=== PATIENT | female | born 1995 | race Caucasian/White ===

== ENCOUNTER 2022-10-31 08:05 | Day surgery (SDC) | payer OTHER ==
--- NOTE | 2022-10-31 07:46 | HP ---
DATE OF SURGERY: 10/31/2022 HISTORY OF PRESENT ILLNESS: The patient is a 27-year-old with history of some nausea, vomiting, diarrhea and abdominal aches a little bit lower as well as six to seven loose stools a day. CT negative for appendicitis and HIDA could not do ejection fraction according to the patient. She is in need of endoscopy for further evaluation. PAST MEDICAL HISTORY: Anxiety, depression, dyslexia. PAST SURGICAL HISTORY: section, tonsillectomy and adenoidectomy. MEDICATIONS: Nexplanon. Toradol. ALLERGIES: KETOROLAC. FAMILY HISTORY: Thyroid disease, depression, diabetes. SOCIAL HISTORY: Smoker, occasional alcohol use. REVIEW OF SYSTEMS: Fourteen systems reviewed. No chest pain or palpitations. Other systems negative or noncontributory as above and per preadmission questionnaire. PHYSICAL EXAMINATION: BMI 30. GENERAL: No acute distress. HEENT: Sclerae nonicteric. NECK: No JVD. CHEST: Equal excursion, nonlabored breathing. CVS: Regular rate and rhythm. ABDOMEN: Soft. No peritoneal signs. EXTREMITIES: No significant edema. NEURO: Alert, oriented, moving extremities symmetrically. RECTAL: Deferred timed to endoscopy exam. PSYCH: Appropriate mood and affect. IMPRESSION: Abdominal pain, nausea, vomiting, diarrhea of unclear etiology. Upper endoscopy to rule out celiac disease, peptic ulcer disease, gastritis or other etiology. She is also in need of colonoscopy to evaluate for colitis or irritable bowel disease, celiac disease or other etiology. She was shown the risk sheet and explained the procedure in detail including but not limited to bleeding or infection, risk of bowel injury or perforation, risk of missed or nondiagnosis or incomplete exam possibly requiring barium enema, other studies or procedures. General risk of anesthesia or sedation, risk of bowel prep but not limited to, consent obtained. Risk of missed or nondiagnosis or inability to diagnose the etiology of her symptoms, possibly requiring referral to medical doctor of the GI tract or other testing, procedure or studies. She understands and agrees to the planned procedure, will proceed with outpatient EGD and colonoscopy.
[2022-10-31] MEDS ORDERED: Lactated Ringers 1,000 ML IV ONE (08:18)
[2022-10-31] MEDS ORDERED: Lactated Ringers 1,000 ML IV SCH (08:30)
[2022-10-31 08:35] VITALS: O2SAT 98
[2022-10-31] MEDS ORDERED: Versed 2 MG/2 ML Injection ONE (11:33)
[2022-10-31] MEDS ORDERED: DIPRIVAN 200 MG/20 ML IV ONE ×2 (11:34→11:44)
[2022-10-31] MEDS ORDERED: Xylocaine-Mpf 2% 5 Ml Vial ONE (11:34)
[2022-10-31 12:23] VITALS: BP 100/62; PULSE 93
--- NOTE | 2022-11-01 10:32 | OP ---
SURGERY DATE/TIME: 10/31/2022 1145 PREOPERATIVE DIAGNOSES: Abdominal pain, nausea, vomiting of unclear etiology, need for upper and lower endoscopy to evaluate for gastritis, peptic ulcer disease, colitis, inflammatory bowel disease or other etiology. POSTOPERATIVE DIAGNOSES: 1) ASA Class II. 2) Mild gastritis. 3) Short segment of distal gastroesophagitis. 4) Fair bowel prep. 5) Fairly normal mucosa ileum and colon. PROCEDURES: 1) EGD with cold biopsy of small bowel to evaluate for celiac sprue. 2) Cold biopsy of antrum. 3) Cold biopsy distal esophagus to evaluate for short segment of distal esophagitis, very short segment a couple of millimeters. 4) Colonoscopy to terminal ileum. 5) Retrograde ileoscopy. 6) Random cold biopsy of ileum to evaluate for microscopic ileitis. 7) Random cold biopsy of colon to evaluate for microscopic colitis. SURGEON: Dr. Ronen Summers. ANESTHESIA: MAC. ESTIMATED BLOOD LOSS: Minimal. INDICATIONS: As noted above. Risks and benefits explained in detail and not limited to and consent obtained. DESCRIPTION OF PROCEDURE AND FINDINGS: The patient is taken to the operating room. MAC anesthesia introduced. After official time out and no disagreement with planned procedure, bite block positioned. Video gastroscope easily passed down the esophagus to the patent pylorus to the third portion of the duodenum. Third, second and first portions of duodenum grossly unremarkable. Cold biopsy taken to evaluate for celiac. The scope is pulled back in the stomach. She had some mild gastric erythema. Cold biopsy taken to evaluate for Helicobacter pylori. Otherwise there was a very short segment 1.5 mm to 2 mm of a little bit of inflammation distal esophagus. Cold biopsy taken for path. Good hemostasis noted. Remainder of the esophagus grossly unremarkable. Attention is then turned to colonoscopy. Digital rectal exam did not reveal any rectal masses. Video colonoscope inserted and passed up the tortuous sigmoid, descending, transverse, ascending colon around to the ileum. Up in the ileum retrograde ileoscopy was performed which was grossly unremarkable. No signs of any obvious inflammatory bowel disease. Random cold biopsy taken of the ileum. Random cold biopsies taken in the colon. She had a little bit of liquidy stool limiting the exam just slightly, overall fair prep. The scope was carefully withdrawn over the next 9 minutes. No signs of any large polyps, masses or obstructing lesions. Random cold biopsies taken to evaluate for microscopic colitis. Good hemostasis noted. Findings discussed with the family out in the waiting area. Will check gallbladder ultrasound as an outpatient to rule out other causes.
== END 2022-10-31 12:35 | disposition home or self-care (01) ==
LOC: SDC 08:05
PROVIDERS: ATTEND Surgery
DX: K29.70 Gastritis, unspecified, without bleeding (principal); R10.84 Generalized abdominal pain; R11.2 Nausea with vomiting, unspecified; K21.00 Gastro-esophageal reflux disease with esophagitis, without bleeding
CPT/HCPCS: 81025; J2250; J2704

== ENCOUNTER 2024-10-22 21:16 | Emergency (ER) | payer OTHER ==
[2024-10-22 21:49] VITALS: TEMP 97.8; O2SAT 100
[2024-10-22 22:03] LABS: Absolute Neutrophil Ct (ANC) 6.78 x10^3/uL (1.56-6.13); BASOPHIL % 0.3 % (0.1-1.2); Basophil (Absolute #) 0.03 x10^3/uL (0.01-0.08); Eosinophil % 1.4 % (0.7-5.8); Eosinophil (Absolute #) 0.14 x10^3/uL (0.04-0.36); Hemoglobin 13.6 g/dL (11.2-15.7); IMMATURE GRAN # 0.05 x10^3u/L (0.001-0.031); IMMATURE GRAN % 0.5 % (0.001-0.429); Lymphocyte (Absolute #) 2.39 x10^3/uL (1.18-3.74); Lymphocytes % 23.6 % (19.3-51.7); Mean Cell Volume 93.5 fL (79.4-94.8); Mean Corpuscular Hemoglobin 31.8 pg (25.6-32.2); Mean Platelet Volume 10.1 fL (9.4-12.3); Monocyte (Absolute #) 0.73 x10^3/uL (0.24-0.86); Monocytes % 7.2 % (4.7-12.5); Platelet Count 238 x10^3/uL (182-369); Red Blood Count 4.28 x10^6/uL (3.93-5.22); White Blood Count 10.1 x10^3/uL (3.98-10.04)
--- NOTE | 2024-10-22 22:15 | ERPHSYRPT ---
- History of Present Illness Time Seen by Provider: 10/22/24 22:11 Source: patient Exam Limitations: no limitations Patient Subjective Stated Complaint: pt states that she is 12 weeks 6 days . pt states that today she began to bleed. pt states that she had intercoarse last night Triage Nursing Assessment: pt ambulated into the er; pt is axo x4; c/o vaginal bleeding during ; pt states 9/10 pain to lower back; abd is soft, round, tender; active bowel sounds in all quads; pt denies N/V/D; skin PDW; no respiratory distress present; vitals wnl Physician History: Patient is a 29-year-old female G4, P3 currently 12 weeks 6 days presents to our ED for evaluation of painless vaginal bleeding. Patient states symptoms started after intercourse last night. Patient confirmed via ultrasound in September. However she has not followed up with an [employer] physician. Patient symptoms are mild in intensity. No specific worsening or improving factors. No active bleeding at this time. Patient reports that she is otherwise healthy. Patient's only associated symptomology is mild low back pain. No chest pain or shortness of breath. No nausea vomiting or diaphoresis no diarrhea no rash no urinary symptomology. Patient is otherwise healthy. She voices no other complaints or concerns at this time. Patient declined pain medication. Portions of this note were created with voice recognition technology. There may be grammatical, spelling, punctuation or sound alike errors Timing/Duration: yesterday Severity: moderate Modifying Factors: Improves With: nothing Associated Symptoms: denies symptoms Allergies/Adverse Reactions: ketorolac [From Toradol] Allergy (Unknown, Verified 10/22/24 21:28) Swelling of Face Home Medications: No Reportable Medications [No Reported Medications] 10/04/22 [History] Hx Tetanus, Diphtheria Vaccination/Date Given: Yes Hx Influenza Vaccination/Date Given: No Hx Pneumococcal Vaccination/Date Given: No Travel Risk - International Travel Have you traveled outside of the country in past 3 weeks: No - Emerging Infectious Disease Are you exhibiting symptoms associated with any current EIDs: No - Review of Systems Constitutional: No Symptoms, No Fever, No Chills Eyes: No Symptoms Ears, Nose, & Throat: No Symptoms Respiratory: No Symptoms, No Cough, No Dyspnea Cardiac: No Symptoms, No Chest Pain, No Edema, No Syncope Abdominal/Gastrointestinal: No Symptoms, No Abdominal Pain, No Nausea, No Vomiting, No Diarrhea Genitourinary Symptoms: No Symptoms, No Dysuria Musculoskeletal: No Symptoms, No Back Pain, No Neck Pain Skin: No Symptoms, No Rash Neurological: No Symptoms, No Dizziness, No Focal Weakness, No Sensory Changes Psychological: No Symptoms Endocrine: No Symptoms Hematologic/Lymphatic: No Symptoms Immunological/Allergic: No Symptoms All Other Systems: Reviewed and Negative - Past Medical History Pertinent Past Medical History: Yes Neurological History: No Pertinent History ENT History: No Pertinent History Cardiac History: No Pertinent History Respiratory History: No Pertinent History Endocrine Medical History: No Pertinent History Musculoskeletal History: No Pertinent History GI Medical History: No Pertinent History History: No Pertinent History Psycho-Social History: Anxiety, Depression Female Reproductive Disorders: No Pertinent History - Past Surgical History Past Surgical History: Yes Neuro Surgical History: No Pertinent History Cardiac: No Pertinent History Respiratory: No Pertinent History Gastrointestinal: No Pertinent History Genitourinary: No Pertinent History Musculoskeletal: No Pertinent History Female Surgical History: Section Other Surgical History: x3 - Female History Hx Now: Yes Gestational Age: 12 wk 6d - Social History Smoking Status: Current every day smoker How long have you smoked: 10 years Exposure to second hand smoke: Yes Drug Use: none - Social Determinants of Health Will the patient participate in the screening: Yes Do you worry about a steady place to live?: No Do you have any problems with any of the following?: No known problems In the past 12 months,have you had to go without utilities?: No Transportation Issues: No Has anyone in your support network made you feel unsafe?: No Have you or anyone in your house had to go without enough: No - Nursing Vital Signs Nursing Vital Signs: Initial Vital Signs Pulse Rate 90 10/22/24 21:31 Blood Pressure 123/74 10/22/24 21:31 O2 Sat by Pulse Oximetry 100 10/22/24 21:31 Pain Scale Pain Intensity 9 - Physical Exam General Appearance: no apparent distress, alert Eye Exam: PERRL/EOMI, eyes nml inspection Ears, Nose, Throat Exam: normal ENT inspection, pharynx normal, moist mucous membranes Neck Exam: normal inspection, full range of motion Respiratory Exam: normal breath sounds, lungs clear, airway intact, No respiratory distress Cardiovascular Exam: regular rate/rhythm, normal heart sounds, normal peripheral pulses Gastrointestinal/Abdomen Exam: soft, normal bowel sounds, No tenderness, No mass Pelvic Exam: normal external exam, No adnexal tenderness, No adnexal mass, No cervical motion tenderness, No vaginal bleeding (No vaginal bleeding observed on my exam today.), No uterine tenderness, No vaginal discharge Back Exam: normal inspection, normal range of motion, No CVA tenderness, No vert ebral tenderness Extremity Exam: normal inspection, normal range of motion, pelvis stable Neurologic Exam: alert, oriented x 3, cooperative, normal mood/affect, sensation nml, No motor deficits Skin Exam: normal color, warm, dry, No rash Lymphatic Exam: No adenopathy SpO2 Interpretation: normal SpO2: 100 O2 Delivery: Room Air - Course Nursing assessment & vital signs reviewed: Yes Ordered Tests: Active Orders 24 hr Category Date Time Status AMA [Release AMA] OM.NOW Care 10/22/24 23:18 Active OB <14 WKS 1ST GESTATION [US] Stat Exams 10/22/24 21:42 Taken CBC W DIFF Stat Lab 10/22/24 21:55 Completed CMP Stat Lab 10/22/24 21:55 Results HCG, Quantitative (Inhouse) Stat Lab 10/22/24 21:55 Results UA W/RFX UR CULTURE Stat Lab 10/22/24 21:48 Received Lab/Rad Data: Laboratory Result Diagrams 10/22/24 21:55 10/22/24 21:55 Laboratory Results 10/22/24 10/22/24 10/22/24 Range/Units 21:55 21:55 21:55 WBC 10.1 H (3.98-10.04) x10^3/uL RBC 4.28 (3.93-5.22) x10^6/uL Hgb 13.6 (11.2-15.7) g/dL Hct 40.0 (34.1-44.9) % MCV 93.5 (79.4-94.8) fL MCH 31.8 (25.6-32.2) pg MCHC 34.0 (32.2-35.5) g/dL RDW 13.0 (11.7-14.4) % Plt Count 238 (182-369) x10^3/uL MPV 10.1 (9.4-12.3) fL Gran % 67.0 (34.0-71.1) % Immature Gran % (Auto) 0.5 H (0.001-0.429) % Nucleat RBC Rel Count 0.0 (0.00-0.2) % Eos # (Auto) 0.14 (0.04-0.36) x10^3/uL Immature Gran # (Auto) 0.05 H (0.001-0.031) x10^3u/L Absolute Lymphs (auto) 2.39 (1.18-3.74) x10^3/uL Absolute Monos (auto) 0.73 (0.24-0.86) x10^3/uL Absolute Nucleated RBC 0.00 (0.00-0.012) x10^3u/L Lymphocytes % 23.6 (19.3-51.7) % Monocytes % 7.2 (4.7-12.5) % Eosinophils % 1.4 (0.7-5.8) % Basophils % 0.3 (0.1-1.2) % Absolute Granulocytes 6.78 H (1.56-6.13) x10^3/uL Basophils # 0.03 (0.01-0.08) x10^3/uL Sodium 136 (135-145) mmol/L Potassium 3.9 (3.5-5.1) mmol/L Chloride 105 (98-107) mmol/L Carbon Dioxide 22 (22-30) mmol/L Anion Gap 11.9 (5-15) MEQ/L BUN 12 (7-17) mg/dL Creatinine 0.56 (0.52-1.04) mg/dL Estimated GFR 126.6 ML/MIN Glucose 83 (74-106) mg/dL Calcium 9.5 (8.4-10.2) mg/dL Total Bilirubin 0.30 (0.2-1.3) mg/dL AST 22 (14-36) U/L ALT 15 (0-35) U/L Alkaline Phosphatase 72 (38-126) U/L Serum Total Protein 7.0 (6.3-8.2) g/dL Albumin 4.2 (3.5-5.0) g/dL Beta HCG, Quant Pending ABO Group O Rh Factor POSITIVE Antibody Screen NEGATIVE (NEGATIVE) - Progress Progress: improved Progress Note: 29-year-old female currently 12 weeks 6 days presents to our ED with vaginal bleeding. Physical exam shows no active vaginal bleeding. Ultrasound report pending. Beta quant pending. STI workup pending. Patient states that she must leave due to home responsibilities. Risk and benefits discussed. AMA form completed. Patient is of sound mind. Patient is appropriate to make informed and independent medical decisions. Patient understands that leaving AGAINST MEDICAL ADVICE can result in delayed diagnosis, increased risk of morbidity, mortality, short and long-term disability including . In spite of these risks, patient has decided to leave AGAINST MEDICAL ADVICE. Patient understands that she may return to our ED at any point if he or she reconsiders. Patient agrees to follow-up with her primary care doctor within 48 hours for reevaluation. Patient voices no other complaints or concerns at this time. We will release patient AGAINST MEDICAL ADVICE per their request. Complexity of problem addressed is moderate acute complicated no critical care time. Complex of data reviewed and analyzed is moderate. Test ordered chest reviewed results analyzed and correlated clinically with history and physical exam. Risk of complication and or risk of morbidity/mortality of patient management is low. Vital stable. Time spent to discharge patient AMA is approximately 10 minutes. No social determinants of health present to impede follow-up. Portions of this note were created with voice recognition technology. There may be grammatical, spelling, punctuation or sound alike errors 10/22/24 23:20 Counseled pt/family regarding: diagnosis, need for follow-up, rad results - Departure Departure Disposition: AMA Clinical Impression: Vaginal bleeding during Condition: Stable Critical Care Time: No Referrals: CAROLINE PEÑA PA [Primary Care Provider] - Follow up/PCP as directed Additional Instructions: Discharge/Care Plan HERLINDA PARRA was seen on 10/22/24 in the Emergency Room. The patient was counseled regarding Diagnosis,Lab results, Imaging studies, need for follow up and when to return to the Emergency Room. Prescriptions given: Discharge Note I have spoken with the patient and/or caregivers. I have explained the patient's condition, diagnosis and treatment plan based on the information available to me at this time. I have answered the patient's and/or caregiver's questions and addressed any concerns. The patient and/or caregivers have as good understanding of the patient's diagnosis, condition and treatment plan as can be expected at this point. The vital signs have been stable. The patient's condition is stable and appropriate for discharge from the emergency department. The patient will pursue further outpatient evaluation with the primary care physician or other designated or consulting physician as outlined in the discharge instructions. The patient and/or caregivers are agreeable to this plan of care and follow-up instructions have been explained in detail. The patient and/or caregivers have received these instruction. The patient/and or caregivers are aware that any significant change in condition or worsening of symptoms should prompt an immediate return to this or the closest emergency department or call 911.
[2024-10-22 22:34] LABS: ALBUMIN 4.2 g/dL (3.5-5.0); ANION GAP 11.9 MEQ/L (5-15); BILIRUBIN,TOTAL 0.3 mg/dL (0.2-1.3); Calcium 9.5 mg/dL (8.4-10.2); Creatinine 1 0.56 mg/dL (0.52-1.04); EST GLOMERULAR FILTRATION RATE 126.6 ML/MIN; Potassium 3.9 mmol/L (3.5-5.1)
[2024-10-22 23:09] VITALS: BP 113/51; PULSE 82; RESP 18
[2024-10-22 23:14] LABS: ABO TYPING O; RH TYPING POSITIVE
[2024-10-22 23:15] LABS: Antibody Screen NEGATIVE (NEGATIVE)
[2024-10-22 23:21] LABS: Appearance Cloudy (Clear); Bacteria None Seen /HPF (None Seen); Bilirubin Negative (Negative); Blood Small (Negative); Epithelial Cells Rare /HPF (None Seen); Glucose, Urine Negative (Negative); Hyaline Casts NONE SEEN /LPF (0-2); Ketones Negative (Negative); Leukocyte Esterase Negative (Negative); Nitrite Negative (Negative); Protein,Urine Dip Negative (Negative); RBC 0-2 /HPF (0-5); Specific Gravity 1.015 (1.005-1.030); WBC 0-2 /HPF (0-5)
[2024-10-22 23:26] LABS: Candida Group DETECTED (NEGATIVE); Candida glab/krus NOT DETECTED (NEGATIVE)
[2024-10-22 23:58] LABS: CHLAMYDIA DNA NOT DETECTED (NEGATIVE); GC DNA Probe NOT DETECTED (NEGATIVE)
--- NOTE | 2024-10-23 09:06 | XRAY ---
Indication: Vaginal bleeding. 13 weeks . Two-dimensional transabdominal early OB ultrasound performed. Comparison: None Single intrauterine gestational sac with single pole. heart rate 169 bpm. Mean gestational age 13 weeks 5 days. Developing anterior placenta without abnormal retroplacental fluid. Impression: Single viable intrauterine measuring 13 weeks 5 days. Expected date confinement is April 24, 2025. No acute finding. Comment: Preliminary report was given.
== END 2024-10-22 23:22 | disposition left against medical advice (07) ==
LOC: ED 21:16
DX: O20.9 Hemorrhage in early pregnancy, unspecified (principal); Z3A.12 12 weeks gestation of pregnancy; Z72.0 Tobacco use
CPT/HCPCS: 36415; 76801; 80053; 81001; 81515; 84702; 85025; 86850; 86900; 86901; 87491; 87591; 99284